=== PATIENT | female | born 1975 | race Caucasian/White ===

== ENCOUNTER 2019-07-21 14:13 | Observation (INO) ==
[2019-07-21] MEDS ORDERED: 0.9 % Sodium Chloride 1,000 ML ONE (14:25)
[2019-07-21] MEDS ORDERED: 0.9 % Sodium Chloride 1,000 ML IVC ONE ×2 (14:26)
--- NOTE | 2019-07-21 14:57 | Emergency Department Note ---
Disposition Clinical Impression: Vaginal bleeding, Orthostasis, Tachycardia, Decreased hemoglobin Disposition: Admitted As Inpatient Condition: Fair Forms: ED Satisfaction Letter Time of Disposition: 17:17 General Adult HPI - General Chief complaint: ED Vaginal Bleeding Stated complaint: Vaginal Bleeding Time Seen by Provider: 07/21/19 14:22 Source: patient Mode of arrival: ambulatory Limitations: no limitations Nursing Notes Reviewed: Yes Vital Signs Reviewed: Yes - History of Present Illness Pain Scale: 0 - Related Data Home Medications Medication Instructions Recorded Confirmed Buspirone HCl [Buspar] 10 mg PO DAILY 02/05/19 02/05/19 Previous Rx's Medication Instructions Recorded Dicyclomine [Bentyl] 20 mg PO QID PRN #20 capsule 06/30/19 Naproxen [Naprosyn] 500 mg PO BID #10 tablet 06/30/19 Allergies Allergy/AdvReac Type Severity Reaction Status Date / Time No Known Allergies Allergy Verified 07/12/19 14:20 All systems ED: reviewed and negative except as stated. Review of Systems: As Per HPI Past Medical History - Past Medical History Medical history: Reports: no medical history Surgical history: Reports: Psychiatric history: Reports: anxiety, depression - Social History Smoking Status: Current some day smoker Smokeless Tobacco Status: No Alcohol use: Reports: occasionally Drug use: Reports: none Physical Exam - General Limitations: no limitations General appearance: alert, in no apparent distress Course Vital Signs Temperature 98.2 F 07/21/19 14:16 Pulse Rate 115 07/21/19 14:16 Respiratory Rate 20 07/21/19 14:16 Blood Pressure 85/50 07/21/19 14:16 O2 Sat by Pulse Oximetry 99 07/21/19 14:16 Temperature 98.2 F 07/21/19 14:16 Pulse Rate 94 07/21/19 17:11 Respiratory Rate 18 07/21/19 16:49 Blood Pressure 142/89 07/21/19 17:11 O2 Sat by Pulse Oximetry 99 07/21/19 16:49 Oxygen Delivery Oxygen Delivery Room Air Medical Decision Making - Lab Data Result diagrams: 07/21/19 16:32 07/21/19 14:26 Lab Results 07/21/19 07/21/19 07/21/19 Range/Units 14:26 14:26 14:26 WBC 8.7 (4.3-11.1) K/mcL RBC 4.36 (3.82-4.97) M/mcL Hgb 12.2 (11.5-15.4) g/dL Hct 39.0 (35.3-44.9) % MCV 89.4 (83.0-100.0) fL MCH 28.0 (28.0-33.3) pg MCHC 31.3 L (31.6-35.5) g/dL RDW 14.2 (11.5-14.5) % Plt Count 364 (140-400) K/mcL MPV 10.2 (9.4-12.4) fL Immature Gran % 0.2 (0-4) % Seg Neutrophils % 72.5 % Lymphocytes % 17.4 % Monocytes % 7.0 % Eosinophils % 2.3 % Basophils % 0.6 % Neutrophils # 6.3 (1.6-8.9) K/mcL Lymphocytes # 1.5 (0.6-4.6) K/mcL Monocytes # 0.6 (0.0-1.3) K/mcL Eosinophils # 0.2 (0.0-0.6) K/mcL Basophils # 0.1 (0.0-0.2) K/mcL Sodium 136 (136-145) mEq/L Potassium 3.9 (3.5-5.1) mEq/L Chloride 103 (98-107) mEq/L Carbon Dioxide 24 (23-29) mEq/L BUN 17 (6-20) mg/dL Creatinine 0.78 (0.60-1.20) mg/dL Est GFR ( Amer) > 60 (> 60) Est GFR (Non-Af Amer) > 60 (> 60) BUN/Creatinine Ratio 22 (6-26) Glucose 108 H (70-105) mg/dL Calculated Osmolality 284 (280-300) Calcium 9.4 (8.6-10.3) mg/dL Beta HCG, Quant < 1 (Less than 5) mIU/mL Blood Type O POSITIVE Antibody Screen NEGATIVE 07/21/19 Range/Units 16:32 WBC 6.2 (4.3-11.1) K/mcL RBC 3.55 L (3.82-4.97) M/mcL Hgb 10.3 L D (11.5-15.4) g/dL Hct 32.2 L (35.3-44.9) % MCV 90.7 (83.0-100.0) fL MCH 29.0 (28.0-33.3) pg MCHC 32.0 (31.6-35.5) g/dL RDW 14.2 (11.5-14.5) % Plt Count 254 (140-400) K/mcL MPV 10.1 (9.4-12.4) fL Immature Gran % 0.3 (0-4) % Seg Neutrophils % 80.0 % Lymphocytes % 11.6 % Monocytes % 6.5 % Eosinophils % 1.1 % Basophils % 0.5 % Neutrophils # 5.0 (1.6-8.9) K/mcL Lymphocytes # 0.7 (0.6-4.6) K/mcL Monocytes # 0.4 (0.0-1.3) K/mcL Eosinophils # 0.1 (0.0-0.6) K/mcL Basophils # 0.0 (0.0-0.2) K/mcL Sodium (136-145) mEq/L Potassium (3.5-5.1) mEq/L Chloride (98-107) mEq/L Carbon Dioxide (23-29) mEq/L BUN (6-20) mg/dL Creatinine (0.60-1.20) mg/dL Est GFR ( Amer) (> 60) Est GFR (Non-Af Amer) (> 60) BUN/Creatinine Ratio (6-26) Glucose (70-105) mg/dL Calculated Osmolality (280-300) Calcium (8.6-10.3) mg/dL Beta HCG, Quant (Less than 5) mIU/mL Blood Type Antibody Screen Attestation Statement - Attestation Attestation: I have seen this patient with the resident physician, I have personally evaluated this patient. I had reviewed the chart and document dictation by the resident physician and aM in agreement with the information documented by the resident physician. Please see documentation by the resident physician for complete chart including past medical history, family medical history, review of systems, current history and physical and laboratory and imaging studies. I was present for all procedures, provided direct supervision for all procedures, was present for the entirety of all procedures and provided direct guidance during the procedures. Please see documentation by the resident physician for any procedures performed. I have reviewed all interpretations of EKGs, and reviewed all EKGs performed on patient's as well. I have also reviewed reports of imaging as provided by radiology. Patient presented to the emergency department with chief complaint of significant vaginal bleeding. The patient states that she has a history of uterine fibroids and dysfunctional uterine bleeding and is already scheduled to have her uterus taken out but she states that she was at work today she started having significant increased bleeding passing large clots and large blood. She states the clots and discontinued throughout the day she started to feel like her heart was racing she thought maybe some of that was a little from anxiety but states that it just continued to race she states she feels a little bit weak nonspecifically dizzy no headache no neck pain or chest pain or shortness of breath she has some suprapubic cramping no other bleeding from any other sources. No blood in her urine recently. No blood from her bowels. No bleeding from her gums. She is not on a blood thinner. Upon presentation, her heart rate in triage was 115 and blood pressure was 85/50, this is a significant change from her recent evaluation when she was here within the last 2 weeks her blood pressure was 160/90 and her heart rate was 85 She is awake and talking, does not currently appear pale, pelvic examination was performed, by the resident physician under my direct guidance which demonstrated large clot within the vagina after clot was evacuated, the vaginal vault continued to aggressively Shay with blood and more clot was evacuated. Patient had 2 large-bore IVs initiated, 2 L of IV fluids were ordered. Type and screen was ordered CBC basic metabolic profile were ordered screen was ordered all of this was -2 weeks ago. The patient had stood up at the bedside and take off her underwear her heart rate increased from 115 -145, and gradually came back down. She did not feel like she is given a pass out, after fluids are initiated, initial blood pressure was 100 systolic, then continued to increase. Immediately after arrival and evaluation [employer] INSPECTOR was contacted for significant vaginal bleeding, with tachycardia and hypotension. Patient does seem to be responding to fluids, after a liter, heart rate is improved, blood pressure significantly improved. Patient seen by [employer] INSPECTOR in the emergency department, CBC shows her hemoglobin is 12.2 without significant change from 12.8 from 2 weeks ago. On [employer] INSPECTOR's examination and patient's report she has increased bleeding without significant cramping. [employer] INSPECTOR states that this patient had not stopped taking her oral contraceptive she has her bleeding stopped, they are recommending that she get intramuscular estrogen which was ordered a repeat CBC, at 1630, and be called with results or any concerns, if these are within acceptable limits, without significant change, and patient management imminently normal they are comfortable with the patient being discharged home to restart her OCPs, and follow-up to have her uterus taken out as already scheduled. Blood pressure was 142/83 heart rate was 94 after 2 L of fluids, repeat CBC showed that her hemoglobin decreased from 12.2-10.3, she did start having some bleeding again although it is improved and lessened she did start having some increased bleeding recurrently here orthostatic vital signs were checked blood pressure remained okay however heart rate increased by over 20 points patient got dizzy, she was placed back in bed [employer] INSPECTOR was again contacted and they will admit this patient for further management.
[2019-07-21 14:59] LABS: Basophils # 0.1 K/mcL (0.0-0.2); Basophils % 0.6 %; Eosinophils # 0.2 K/mcL (0.0-0.6); Eosinophils % 2.3 %; Hemoglobin 12.2 g/dL (11.5-15.4); Immature Granulocytes % 0.2 % (0-4); Lymphocytes # 1.5 K/mcL (0.6-4.6); Lymphocytes % 17.4 %; Mean Corpuscular HGB Conc 31.3 g/dL (31.6-35.5); Mean Corpuscular Volume 89.4 fL (83.0-100.0); Mean Platelet Volume 10.2 fL (9.4-12.4); Monocytes # 0.6 K/mcL (0.0-1.3); Neutrophils # 6.3 K/mcL (1.6-8.9); Platelet Count 364 K/mcL (140-400); Red Blood Count 4.36 M/mcL (3.82-4.97); Red Cell Distribution Width 14.2 % (11.5-14.5); Segmented Neutrophils % 72.5 %; White Blood Count 8.7 K/mcL (4.3-11.1)
--- NOTE | 2019-07-21 15:02 | Emergency Department Note ---
Disposition Clinical Impression: Vaginal bleeding, Orthostasis, Tachycardia, Decreased hemoglobin Disposition: Admitted As Inpatient Condition: Fair Time of Disposition: 18:52 General Adult HPI - General Chief complaint: ED Vaginal Bleeding Stated complaint: Vaginal Bleeding Time Seen by Provider: 07/21/19 14:22 Source: patient Mode of arrival: ambulatory Limitations: no limitations Nursing Notes Reviewed: Yes Vital Signs Reviewed: Yes - History of Present Illness HPI Narrative: 44-year-old female significant past medical history of dysmenorrhea scheduled for a hysterectomy next week with Dr. Santana presenting to the emergency department chief complaint of vaginal bleeding. Patient states yesterday she had some vaginal bleeding with heavy clots but that it stopped on its own. Today she was at work when she had severe heavy bleeding. She says she felt her heart racing and came in for further evaluation. She denies any dizziness, shortness of breath or syncope. Denies any abdominal pain. Pain Scale: 0 - Related Data Home Medications Medication Instructions Recorded Confirmed Buspirone HCl [Buspar] 10 mg PO DAILY 02/05/19 02/05/19 Previous Rx's Medication Instructions Recorded Dicyclomine [Bentyl] 20 mg PO QID PRN #20 capsule 06/30/19 Naproxen [Naprosyn] 500 mg PO BID #10 tablet 06/30/19 Allergies Allergy/AdvReac Type Severity Reaction Status Date / Time No Known Allergies Allergy Verified 07/12/19 14:20 All systems ED: reviewed and negative except as stated. Constitutional: Denies: fever Eyes: Reports: as per HPI ENT ED: Reports: as per HPI Cardiovascular: Reports: palpitations. Denies: chest pain Respiratory: Denies: dyspnea Gastrointestinal: Denies: abdominal pain Genitourinary: Reports: abnormal menses Musculoskeletal: Reports: as per HPI Integumentary: Reports: as per HPI Neurological: Reports: as per HPI Psychiatric: Reports: as per HPI Endocrine: Reports: as per HPI Hematological/Lymphatic: Reports: as per HPI Allergic/Immunologic: Reports: as per HPI Past Medical History - Past Medical History Attestation: Yes The following information was validated with the patient. Medical history: Reports: no medical history Surgical history: Reports: Psychiatric history: Reports: anxiety, depression - Social History Smoking Status: Current some day smoker Smokeless Tobacco Status: No Alcohol use: Reports: occasionally Drug use: Reports: none Physical Exam - General Limitations: no limitations General appearance: alert, in no apparent distress - Head Head exam: atraumatic, normocephalic, normal inspection - Eye Eye exam: Absent: scleral icterus - ENT ENT exam: mucous membranes moist - Neck Neck exam: Present: full ROM - Chest Chest inspection: Present: symmetric chest wall rise - Respiratory Respiratory exam: Present: normal lung sounds bilaterally. Absent: respiratory distress, wheezes - Cardiovascular Cardiovascular exam: Present: normal rhythm, tachycardia, normal heart sounds - Abdominal Exam Abdominal exam: Present: soft, Non-Tender. Absent: distention, guarding, rebound - Female Preventative Maintenance Technician present during exam: Yes External Exam: Present: normal external exam Speculum Exam: Present: vaginal bleeding. Absent: laceration - Extremities Exam Extremities exam: Present: full ROM - Neurological Exam Neurological exam: Present: alert, oriented X3 - Psychiatric Psychiatric exam: Present: normal affect, normal mood - Skin Skin exam: Present: warm, intact Course Course Narrative: 44-year-old female presenting for vaginal bleeding. Patient was triaged with a blood pressure of 85/40. Heart rate 140. Patient was medially brought back to the room and large-bore IV placed with fluids given. Pelvic exam completed and showed vaginal bleeding with multiple large clots that were evacuated. Basic laboratory analysis including type and screen were added. I spoke with the MED ADMIN on-call Dr. Lyman who agreed to evaluate the patient once a H&H is back. After some evacuation of the clots repeat blood pressure shows patient to be hemodynamically stable. Heart rate in the low 100s when she is resting. When patient does stand up she becomes orthostatic with higher heart rate. - Reevaluation(s) Reevaluation #1: Laboratory analysis completed. MED ADMIN evaluated the patient and placed an order for estrogen to be given and a repeat CBC at 4:30. Patient will remain in the emergency department pending repeat lab analysis. She remains alert and oriented 3 and hemodynamically stable at this time. Patient still with vaginal bleeding. Reevaluation #2: Repeat CBC shows a drop of 2.7 hemoglobin. Patient continues to have vaginal bleeding. My attending spoke with MED ADMIN who agrees to accept the patient to her service at this time. Patient remains alert and oriented 3 and hemody namically stable at time of admission. Vital Signs Temperature 98.2 F 07/21/19 14:16 Pulse Rate 115 07/21/19 14:16 Respiratory Rate 20 07/21/19 14:16 Blood Pressure 85/50 07/21/19 14:16 O2 Sat by Pulse Oximetry 99 07/21/19 14:16 Temperature 98.2 F 07/21/19 14:16 Pulse Rate 94 07/21/19 17:11 Respiratory Rate 18 07/21/19 16:49 Blood Pressure 142/89 07/21/19 17:11 O2 Sat by Pulse Oximetry 99 07/21/19 16:49 Oxygen Delivery Oxygen Delivery Room Air Medical Decision Making - Lab Data Result diagrams: 07/21/19 16:32 07/21/19 14:26 Lab Results 07/21/19 07/21/19 07/21/19 Range/Units 14:26 14:26 14:26 WBC 8.7 (4.3-11.1) K/mcL RBC 4.36 (3.82-4.97) M/mcL Hgb 12.2 (11.5-15.4) g/dL Hct 39.0 (35.3-44.9) % MCV 89.4 (83.0-100.0) fL MCH 28.0 (28.0-33.3) pg MCHC 31.3 L (31.6-35.5) g/dL RDW 14.2 (11.5-14.5) % Plt Count 364 (140-400) K/mcL MPV 10.2 (9.4-12.4) fL Immature Gran % 0.2 (0-4) % Seg Neutrophils % 72.5 % Lymphocytes % 17.4 % Monocytes % 7.0 % Eosinophils % 2.3 % Basophils % 0.6 % Neutrophils # 6.3 (1.6-8.9) K/mcL Lymphocytes # 1.5 (0.6-4.6) K/mcL Monocytes # 0.6 (0.0-1.3) K/mcL Eosinophils # 0.2 (0.0-0.6) K/mcL Basophils # 0.1 (0.0-0.2) K/mcL Sodium 136 (136-145) mEq/L Potassium 3.9 (3.5-5.1) mEq/L Chloride 103 (98-107) mEq/L Carbon Dioxide 24 (23-29) mEq/L BUN 17 (6-20) mg/dL Creatinine 0.78 (0.60-1.20) mg/dL Est GFR ( Amer) > 60 (> 60) Est GFR (Non-Af Amer) > 60 (> 60) BUN/Creatinine Ratio 22 (6-26) Glucose 108 H (70-105) mg/dL Calculated Osmolality 284 (280-300) Calcium 9.4 (8.6-10.3) mg/dL Beta HCG, Quant < 1 (Less than 5) mIU/mL Blood Type O POSITIVE Antibody Screen NEGATIVE 07/21/19 Range/Units 16:32 WBC 6.2 (4.3-11.1) K/mcL RBC 3.55 L (3.82-4.97) M/mcL Hgb 10.3 L D (11.5-15.4) g/dL Hct 32.2 L (35.3-44.9) % MCV 90.7 (83.0-100.0) fL MCH 29.0 (28.0-33.3) pg MCHC 32.0 (31.6-35.5) g/dL RDW 14.2 (11.5-14.5) % Plt Count 254 (140-400) K/mcL MPV 10.1 (9.4-12.4) fL Immature Gran % 0.3 (0-4) % Seg Neutrophils % 80.0 % Lymphocytes % 11.6 % Monocytes % 6.5 % Eosinophils % 1.1 % Basophils % 0.5 % Neutrophils # 5.0 (1.6-8.9) K/mcL Lymphocytes # 0.7 (0.6-4.6) K/mcL Monocytes # 0.4 (0.0-1.3) K/mcL Eosinophils # 0.1 (0.0-0.6) K/mcL Basophils # 0.0 (0.0-0.2) K/mcL Sodium (136-145) mEq/L Potassium (3.5-5.1) mEq/L Chloride (98-107) mEq/L Carbon Dioxide (23-29) mEq/L BUN (6-20) mg/dL Creatinine (0.60-1.20) mg/dL Est GFR ( Amer) (> 60) Est GFR (Non-Af Amer) (> 60) BUN/Creatinine Ratio (6-26) Glucose (70-105) mg/dL Calculated Osmolality (280-300) Calcium (8.6-10.3) mg/dL Beta HCG, Quant (Less than 5) mIU/mL Blood Type Antibody Screen Attestation Statement - Attestation Attestation: I have seen this patient with the resident physician, I have personally evaluated this patient. I had reviewed the chart and document dictation by the resident physician and aM in agreement with the information documented by the resident physician. Please see documentation by the resident physician for complete chart including past medical history, family medical history, review of systems, current history and physical and laboratory and imaging studies. I was present for all procedures, provided direct supervision for all procedures, was present for the entirety of all procedures and provided direct guidance during the procedures. Please see documentation by the resident physician for any procedures performed. I have reviewed all interpretations of EKGs, and reviewed all EKGs performed on patient's as well. I have also reviewed reports of imaging as provided by radiology.
[2019-07-21 15:21] LABS: BUN/Creatinine Ratio 22 (6-26); Blood Urea Nitrogen 17 mg/dL (6-20); Calcium 9.4 mg/dL (8.6-10.3); Carbon Dioxide 24 mEq/L (23-29); Chloride 103 mEq/L (98-107); Glucose 108 mg/dL (70-105); Osmolality,Calculated 284 (280-300); Potassium 3.9 mEq/L (3.5-5.1); Sodium 136 mEq/L (136-145); eGFR For African Americans > 60 (> 60); eGFR For Non-African Americans > 60 (> 60)
--- NOTE | 2019-07-21 16:02 | OB/GYN Consult Note ---
Date of Encounter: 07/21/19 Time of Encounter: 15:50 History of Present Illness Consult date: 07/21/19 Requesting physician: Javy Joseph Reason for consult: menorrhagia Chief complaint: menorrhagia with known fibroitic uterus History of present illness: 44yo who presents to the ED with severe uterine bleeding. The patient reports to have had increased bleeding yesterday, that slowed down significantly until this afternoon when she felt a reported gush and persisted to have heavy bleeding over the next 30 minutes. SHe did state that she was covered in blood and started to become lightheaded and dizzy. It was at this time that she presented to the ED for evaluation. Heavy menstrual bleeding/menorrhagia is not new for the patient. She is UTD with [employer] care through Dr. Santana. She is scheduled to have a WALI/BSO on 08/02/2019 and has completed her preoperative testing for the procedure. Dr. Santana did place the patient on po progesterone Anaprox DS for excessive [place] rine bleeding. PAtient does admit to not be taking this medication, despite recommendation from her provider to take this medication twice daily for 30 days. The most recent rx was meant to cover the patient until her surgery date. UPon arrival, her starting Hgb was 12.2, most recently compared to her Hgb collected on 07/12 that was 12.6. The patient has slowly begun to decrease Hgb from 14.0 --> to 12.2 today. Per the ED resident (see documentation), she did report to perform a SSE and had multiple clots of blood be evacuated from the vaginal vault. In the ED, they appropriately resuscitated the patient, with her BP up from 80s/50s to 150s/90s. Her baseline in the office is 130s/80s. Her HR has appropriately come down from 140s to low 100s. I did perform a vaginal exam and no active clots were appreciated. I did see dark red blood (present from prior exams and bleeding) present on her perineum however her vault was no longer pooling of blood and with valsalva there was no expulsion of clots. The patient reports to not feel as poorly as she did earlier with minimal cramping. My recommendation at this time is for the patient to receive 1 dose of IV estrogen (25mg x1), a repeat CBC 2hr after her initial (1630), and for the patient to RESUME her prescribed medication(S) for her diagnosis of AUB/menorrhagia. Patient was amendable to the above and understood my recommendations. I will discuss the above with Dr. Joseph. PLan for patient to be DC'd to home after c ompletion of IV estrogen and review of CBC. MD [facility] Past Med Surg Social Fam HX - Past Medical History Medical history: no medical history Additional medical history: Chronic Back Issues. Anemia. 1995, 2000, 2001, 2009. Intramural Leiomyoma of Uterus. Dysfunctional Uterine Bleeding. Pelvic Pain Psychiatric history: anxiety, depression - Past Surgical History Surgical History: Additional surgical history: laminectomy - Social History Smoking Status: Current some day smoker Smokeless Tobacco Status: No Alcohol use: occasionally Drug use: none Medications and Allergies Buspirone HCl [Buspar] 10 mg PO DAILY 02/05/19 [History] Dicyclomine [Bentyl] 20 mg PO QID PRN #20 capsule 06/30/19 [Rx] Naproxen [Naprosyn] 500 mg PO BID #10 tablet 06/30/19 [Rx] Allergy/AdvReac Type Severity Reaction Status Date / Time No Known Allergies Allergy Verified 07/12/19 14:20 Exam - Vital Signs Vital signs: Initial Vital Signs Temp Pulse Resp BP Pulse Ox 98.2 F 115 20 85/50 99 07/21/19 14:16 07/21/19 14:16 07/21/19 14:16 07/21/19 14:16 07/21/19 14:16 Results Result Diagrams: 07/21/19 14:26 07/21/19 14:26 Abnormal lab results MCHC 31.3 g/dL (31.6-35.5) L 07/21/19 14:26 Glucose 108 mg/dL (70-105) H 07/21/19 14:26 All other labs normal. Consult Discharge Plan - Plan
[2019-07-21 16:48] LABS: Basophils % 0.5 %; Eosinophils # 0.1 K/mcL (0.0-0.6); Eosinophils % 1.1 %; Hematocrit 32.2 % (35.3-44.9); Hemoglobin 10.3 g/dL (11.5-15.4); Immature Granulocytes % 0.3 % (0-4); Lymphocytes # 0.7 K/mcL (0.6-4.6); Lymphocytes % 11.6 %; Mean Corpuscular Volume 90.7 fL (83.0-100.0); Mean Platelet Volume 10.1 fL (9.4-12.4); Monocytes # 0.4 K/mcL (0.0-1.3); Monocytes % 6.5 %; Platelet Count 254 K/mcL (140-400); Red Blood Count 3.55 M/mcL (3.82-4.97); Red Cell Distribution Width 14.2 % (11.5-14.5); White Blood Count 6.2 K/mcL (4.3-11.1)
[2019-07-21] MEDS ORDERED: Water for inj. (sterile) 20 ML VIAL IV ONE (16:50)
[2019-07-21] MEDS ORDERED: Famotidine 20 MG TABLET PO SCH (21:00)
[2019-07-22 08:58] VITALS: BP 145/83
--- NOTE | 2019-07-22 09:06 | Discharge Summary ---
Date of Encounter: 07/22/19 Time of Encounter: 09:06 - Discharge Diagnosis (1) Uterine fibroid Priority: Primary Status: Acute Comments: Pt with uterine fibroid and dub and hysterectomy is planned. Pt presented with heavy vaginal bleeding that has slowed. Will recheck hgb and d/c home on Megace if stable. Qualifiers: Uterine leiomyoma location: submucous Qualified Code(s): D25.0 - Submucous leiomyoma of uterus (2) Uterine fibroid Priority: Secondary Status: Acute Qualifiers: Uterine leiomyoma location: subserous Qualified Code(s): D25.2 - Subserosal leiomyoma of uterus (3) Decreased hemoglobin Priority: Primary Status: Acute Comments: Will recheck hgb., vss (4) Vaginal bleeding Priority: Primary Status: Acute - Discharge Medications Prescriptions: New Megestrol Acetate [Megace] 40 mg PO DAILY #10 tablet No Action Dicyclomine [Bentyl] 20 mg PO QID PRN #20 capsule PRN Reason: Pain Naproxen [Naprosyn] 500 mg PO BID #10 tablet Buspirone HCl [Buspar] 10 mg PO DAILY Home Medications: Buspirone HCl [Buspar] 10 mg PO DAILY 02/05/19 [History] Dicyclomine [Bentyl] 20 mg PO QID PRN #20 capsule 06/30/19 [Rx] Naproxen [Naprosyn] 500 mg PO BID #10 tablet 06/30/19 [Rx] Megestrol Acetate [Megace] 40 mg PO DAILY #10 tablet 07/22/19 [Rx] Allergies/Adverse Reactions: Allergy/AdvReac Type Severity Reaction Status Date / Time No Known Allergies Allergy Verified 07/12/19 14:20 Data Procedures and tests throughout hospitalization: Laboratory Tests 07/21/19 07/21/19 07/21/19 14:26 14:26 14:26 WBC 8.7 RBC 4.36 Hgb 12.2 Hct 39.0 MCV 89.4 MCH 28.0 MCHC 31.3 L RDW 14.2 Plt Count 364 MPV 10.2 Immature Gran % 0.2 Seg Neutrophils % 72.5 Lymphocytes % 17.4 Monocytes % 7.0 Eosinophils % 2.3 Basophils % 0.6 Neutrophils # 6.3 Lymphocytes # 1.5 Monocytes # 0.6 Eosinophils # 0.2 Basophils # 0.1 Sodium 136 Potassium 3.9 Chloride 103 Carbon Dioxide 24 BUN 17 Creatinine 0.78 Est GFR ( Amer) > 60 Est GFR (Non-Af Amer) > 60 BUN/Creatinine Ratio 22 Glucose 108 H Calculated Osmolality 284 Calcium 9.4 Beta HCG, Quant < 1 Blood Type O POSITIVE Antibody Screen NEGATIVE 07/21/19 16:32 WBC 6.2 RBC 3.55 L Hgb 10.3 L D Hct 32.2 L MCV 90.7 MCH 29.0 MCHC 32.0 RDW 14.2 Plt Count 254 MPV 10.1 Immature Gran % 0.3 Seg Neutrophils % 80.0 Lymphocytes % 11.6 Monocytes % 6.5 Eosinophils % 1.1 Basophils % 0.5 Neutrophils # 5.0 Lymphocytes # 0.7 Monocytes # 0.4 Eosinophils # 0.1 Basophils # 0.0 Sodium Potassium Chloride Carbon Dioxide BUN Creatinine Est GFR ( Amer) Est GFR (Non-Af Amer) BUN/Creatinine Ratio Glucose Calculated Osmolality Calcium Beta HCG, Quant Blood Type Antibody Screen Labs on day of discharge: Labs from last 24 hours 07/21/19 07/21/19 07/21/19 16:32 14:26 14:26 WBC 6.2 RBC 3.55 L Hgb 10.3 L D Hct 32.2 L MCV 90.7 MCH 29.0 MCHC 32.0 RDW 14.2 Plt Count 254 MPV 10.1 Immature Gran % 0.3 Seg Neutrophils % 80.0 Lymphocytes % 11.6 Monocytes % 6.5 Eosinophils % 1.1 Basophils % 0.5 Neutrophils # 5.0 Lymphocytes # 0.7 Monocytes # 0.4 Eosinophils # 0.1 Basophils # 0.0 Sodium 136 Potassium 3.9 Chloride 103 Carbon Dioxide 24 BUN 17 Creatinine 0.78 Est GFR ( Amer) > 60 Est GFR (Non-Af Amer) > 60 BUN/Creatinine Ratio 22 Glucose 108 H Calculated Osmolality 284 Calcium 9.4 Beta HCG, Quant < 1 Blood Type O POSITIVE Antibody Screen NEGATIVE 07/21/19 14:26 WBC 8.7 RBC 4.36 Hgb 12.2 Hct 39.0 MCV 89.4 MCH 28.0 MCHC 31.3 L RDW 14.2 Plt Count 364 MPV 10.2 Immature Gran % 0.2 Seg Neutrophils % 72.5 Lymphocytes % 17.4 Monocytes % 7.0 Eosinophils % 2.3 Basophils % 0.6 Neutrophils # 6.3 Lymphocytes # 1.5 Monocytes # 0.6 Eosinophils # 0.2 Basophils # 0.1 Sodium Potassium Chloride Carbon Dioxide BUN Creatinine Est GFR ( Amer) Est GFR (Non-Af Amer) BUN/Creatinine Ratio Glucose Calculated Osmolality Calcium Beta HCG, Quant Blood Type Antibody Screen - Impressions Pt doing well, now just having spotting. No pain. No orthostatic symptoms. Date of admission: 07/21/19 17:45 Primary care physician: Bambi Barclay CNP Consults: 07/21/19 14:54 Consult to [employer] [CONS] Stat Consulting Provider: TRIMMING CUTTER Merari Reason for Consult: Vaginal bleeding/Hemodynamically unstable Call Completed: Yes - Patient Status Disposition: Home, Self-Care Condition: Good Functional capacity at discharge: independent ambulation Overall status at discharge: patient is progressing back to baseline - Discharge Instructions Follow Up With: Vikas Santana MD [Partnered Physician] - Additional Instructions: Please call office Mon to inform him how you are doing. If not having active/heavy bleeding can just proceed with surgery as planned. 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
[2019-07-22 10:13] LABS: Basophils % 0.8 %; Eosinophils # 0.1 K/mcL (0.0-0.6); Eosinophils % 2.6 %; Hematocrit 30.8 % (35.3-44.9); Hemoglobin 9.7 g/dL (11.5-15.4); Immature Granulocytes % 0.4 % (0-4); Mean Corpuscular HGB Conc 31.5 g/dL (31.6-35.5); Mean Corpuscular Hemoglobin 28.5 pg (28.0-33.3); Mean Corpuscular Volume 90.6 fL (83.0-100.0); Monocytes # 0.5 K/mcL (0.0-1.3); Monocytes % 9.2 %; Neutrophils # 3.7 K/mcL (1.6-8.9); Platelet Count 261 K/mcL (140-400); Red Cell Distribution Width 14.1 % (11.5-14.5); White Blood Count 5.3 K/mcL (4.3-11.1)
[2019-07-22 10:32] LABS: BUN/Creatinine Ratio 18 (6-26); Blood Urea Nitrogen 13 mg/dL (6-20); Calcium 8.3 mg/dL (8.6-10.3); Carbon Dioxide 24 mEq/L (23-29); Chloride 107 mEq/L (98-107); Glucose 97 mg/dL (70-105); Osmolality,Calculated 282 (280-300); Potassium 3.9 mEq/L (3.5-5.1); Sodium 136 mEq/L (136-145); eGFR For African Americans > 60 (> 60); eGFR For Non-African Americans > 60 (> 60)
== END 2019-07-22 11:54 | disposition home or self-care (01) ==
LOC: 1NENUPED 14:13 → EMEROOARM 14:13 → 1NENUPED 18:04
PROVIDERS: ADMIT Student in an Organized Health Care Education/Training Program; ATTEND Student in an Organized Health Care Education/Training Program

== ENCOUNTER 2019-08-02 12:48 | Inpatient (IN) ==
[2019-08-02] MEDS ORDERED: cefOXitin 2,000 MG in Water for inj. (sterile) 20 ML IVP ONE (13:35)
[2019-08-02] MEDS ORDERED: Albuterol 2.5 MG/3 ML NEBULIZER IH PRN (13:35)
[2019-08-02] MEDS ORDERED: Ringers Solution, Lactated 1,000 ML IVC SCH (13:45)
[2019-08-02] MEDS ORDERED: Ondansetron 4 MG/2 ML VIAL IVP ONE (14:06)
[2019-08-02] MEDS ORDERED: *HR* OxyCODONE Immed Rel 5 MG TABLET PO PRN (14:06)
[2019-08-02] MEDS ORDERED: *HR* FentaNYL (PF) 100 MCG/2 ML VIAL ONE ×2 (14:25→15:32)
[2019-08-02] MEDS ORDERED: *HR* Midazolam HCl 2 MG/2 ML VIAL ONE ×2 (14:26→16:38)
[2019-08-02] MEDS ORDERED: *HR* Propofol 200 MG/20 ML VIAL IVP ONE (14:26)
[2019-08-02] MEDS ORDERED: Lidocaine HCL 4 ML Topical Solution (Laryng-O-Jet Kit Sterile Pak) TP ONE (14:29)
[2019-08-02] MEDS ORDERED: Dexamethasone 4 MG/ML VIAL ONE ×2 (14:29→15:44)
[2019-08-02] MEDS ORDERED: Lidocaine -MPF 2% 2 ML VIAL ONE (14:29)
[2019-08-02] MEDS ORDERED: *HR* Rocuronium Bromide 50 MG/5 ML VIAL ONE (14:29)
[2019-08-02] MEDS ORDERED: Ondansetron 4 MG/2 ML VIAL ONE (14:29)
[2019-08-02] MEDS ORDERED: *HR* Magnesium Sulfate 1 GM/2 ML VIAL ONE (15:36)
[2019-08-02] MEDS ORDERED: EPHEDrine 50 MG/ML VIAL ONE (15:44)
[2019-08-02] MEDS ORDERED: *HR* HYDROMORPHONE 2 MG/ML VIAL ONE (16:25)
[2019-08-02] MEDS ORDERED: Ketorolac 30 MG/ML VIAL IVP PRN (16:34)
[2019-08-02] MEDS ORDERED: *HR* HYDROcodone/Acet 5/325 mg TABLET PO PRN (16:34)
[2019-08-02] MEDS ORDERED: Naloxone 0.4 MG/ML INJ IVP PRN (16:34)
[2019-08-02] MEDS: *HR* HYDROmorphone (PF) 1 MG/ML SYRINGE IVP PRN ×2 (16:53→16:59)
[2019-08-02] MEDS: *HR* Promethazine 25 MG/ML VIAL IVP PRN ×2 (16:54→19:54)
[2019-08-02] MEDS: Ringers Solution, Lactated 1,000 ML IVC SCH ×2 (17:48→18:41)
[2019-08-02] MEDS ORDERED: Morphine Sulfate 2 MG/ML SYRINGE IVP ONE (19:03)
[2019-08-03] MEDS: cefOXitin 2,000 MG in Water for inj. (sterile) 20 ML IVP SCH ×3 (00:17→16:48)
[2019-08-03] MEDS: Simethicone 80 MG TAB.CHEW PO PRN ×2 (00:34→16:48)
[2019-08-03] MEDS: *HR* OxyCODONE/APAP 5/325 TABLET PO PRN ×2 (01:33→04:03)
[2019-08-03] MEDS: Ondansetron 4 MG/2 ML VIAL IVP SCH ×6 (02:39→21:21)
[2019-08-03] MEDS ORDERED: Ondansetron 4 MG/2 ML VIAL IVP SCH (04:00)
[2019-08-03 05:27] LABS: Basophils % 0.1 %; Hematocrit 31.6 % (35.3-44.9); Hemoglobin 10.2 g/dL (11.5-15.4); Immature Granulocytes % 0.4 % (0-4); Lymphocytes # 0.5 K/mcL (0.6-4.6); Lymphocytes % 4.1 %; Mean Corpuscular HGB Conc 32.3 g/dL (31.6-35.5); Mean Corpuscular Hemoglobin 28.5 pg (28.0-33.3); Mean Corpuscular Volume 88.3 fL (83.0-100.0); Mean Platelet Volume 9.9 fL (9.4-12.4); Monocytes # 0.6 K/mcL (0.0-1.3); Monocytes % 4.8 %; Neutrophils # 11.6 K/mcL (1.6-8.9); Platelet Count 335 K/mcL (140-400); Red Blood Count 3.58 M/mcL (3.82-4.97); Red Cell Distribution Width 14.4 % (11.5-14.5); Segmented Neutrophils % 90.6 %; White Blood Count 12.8 K/mcL (4.3-11.1)
[2019-08-03 05:41] LABS: BUN/Creatinine Ratio 17 (6-26); Blood Urea Nitrogen 10 mg/dL (6-20); eGFR For African Americans > 60 (> 60); eGFR For Non-African Americans > 60 (> 60)
[2019-08-03] MEDS: *HR* Promethazine 25 MG/ML VIAL IVP PRN ×3 (08:11→22:39)
[2019-08-03] MEDS: *HR* HYDROmorphone (PF) 1 MG/ML SYRINGE IVP PRN ×4 (08:12→22:40)
[2019-08-03] MEDS ORDERED: *HR* Promethazine 25 MG/ML VIAL IVP ONE (09:51)
[2019-08-03] MEDS: Ringers Solution, Lactated 1,000 ML IVC SCH (12:36)
[2019-08-04] MEDS: Ondansetron 4 MG/2 ML VIAL IVP SCH ×5 (01:02→17:54)
[2019-08-04] MEDS: *HR* Promethazine 25 MG/ML VIAL IVP PRN (04:47)
[2019-08-04] MEDS: *HR* HYDROmorphone (PF) 1 MG/ML SYRINGE IVP PRN ×3 (04:48→17:18)
[2019-08-04 06:51] LABS: Basophils % 0.1 %; Eosinophils % 0.4 %; Hematocrit 30.8 % (35.3-44.9); Hemoglobin 9.7 g/dL (11.5-15.4); Immature Granulocytes % 0.2 % (0-4); Lymphocytes # 0.8 K/mcL (0.6-4.6); Lymphocytes % 9.9 %; Mean Corpuscular HGB Conc 31.5 g/dL (31.6-35.5); Mean Corpuscular Hemoglobin 28.4 pg (28.0-33.3); Mean Corpuscular Volume 90.3 fL (83.0-100.0); Mean Platelet Volume 9.8 fL (9.4-12.4); Monocytes # 0.7 K/mcL (0.0-1.3); Monocytes % 8.6 %; Neutrophils # 6.8 K/mcL (1.6-8.9); Platelet Count 287 K/mcL (140-400); Red Blood Count 3.41 M/mcL (3.82-4.97); Red Cell Distribution Width 14.7 % (11.5-14.5); Segmented Neutrophils % 80.8 %; White Blood Count 8.4 K/mcL (4.3-11.1)
[2019-08-04] MEDS: Ringers Solution, Lactated 1,000 ML IVC SCH ×4 (07:51→14:21)
[2019-08-04] MEDS ORDERED: MOM Conc 10 ML UD.LIQ PO ONE (09:41)
[2019-08-04] MEDS: *HR* OxyCODONE/APAP 5/325 TABLET PO PRN (23:23)
[2019-08-05] MEDS: Ringers Solution, Lactated 1,000 ML IVC SCH (03:38)
[2019-08-05] MEDS: *HR* OxyCODONE/APAP 5/325 TABLET PO PRN (06:26)
[2019-08-05 07:49] VITALS: BP 105/67
== END 2019-08-05 09:46 | disposition home or self-care (01) | DRG 519 ==
LOC: SAMDAY 12:48 → 1NENUPED 18:19
PROVIDERS: ADMIT Obstetrics & Gynecology; ATTEND Obstetrics & Gynecology